=== PATIENT | female | born 1960 | race African-American/Black ===

== ENCOUNTER 2024-08-30 21:53 | Emergency (ER) | payer OTHER, MEDICAID ==
[~2024-08-30] VITALS: Ht 175.3 cm; Wt 127.0 kg
[2024-08-30 21:59] VITALS: O2SAT 99
[2024-08-30 22:59] LABS: BASOPHILS % 0.5 % (0.0-2.0); EOSINOPHILS % 0.7 % (0.0-5.0); HEMATOCRIT. 33.8 % (36.0-48.0); HEMOGLOBIN. 11.4 g/dL (12.0-16.0); LYMPHOCYTES % 20.1 % (20.0-50.0); MEAN CORPUSCULAR HEMOGLOBIN 30.3 pg (28.0-32.0); MEAN CORPUSCULAR HGB CONC 33.7 g/dL (31.0-37.0); MEAN CORPUSCULAR VOLUME 89.9 fL (81.0-99.0); MEAN PLATELET VOLUME 8.9 fl (7.4-10.4); MONOCYTES % 7.2 % (2.0-8.0); NEUTROPHILS % 71.5 % (40.0-76.0); PLATELET 180 x1000/uL (130-400); RED BLOOD CELL COUNT 3.76 mill/uL (4.2-5.4); RED CELL DISTRIBUTION WIDTH 13.7 % (11.6-14.6); WHITE BLOOD COUNT 5.4 x1000/uL (4.5-11.0)
[2024-08-30 23:10] LABS: PARTIAL THROMBOPLASTIN TIME 23.7 sec (23.4-31.0); PROTHROMBIN TIME 10.9 sec (9.6-11.0)
[2024-08-30 23:16] LABS: CHLORIDE 105 mEq/L (98-107); SODIUM 138 mEq/L (136-145)
[2024-08-30 23:17] LABS: CALCIUM 8.5 mg/dL (8.7-10.4); CARBON DIOXIDE 27 mEq/L (21-32)
[2024-08-30 23:22] LABS: CREATININE 1.5 mg/dL (0.6-1.0); GLUCOSE 126 mg/dL (70-105); UREA NITROGEN BLOOD 24 mg/dL (9-23)
[2024-08-30 23:23] LABS: ETHANOL BLOOD < 10 mg/dL (<10)
[2024-08-30 23:25] LABS: TROPONIN I HIGH SENSITIVITY < 4 ng/L (3.0-34)
[2024-08-31] MEDS: SODIUM CHLORIDE 0.9% 500 ML IV NR (00:29)
[2024-08-31 03:11] LABS: TROPONIN I HIGH SENSITIVITY < 4 ng/L (3.0-34)
[2024-08-31] MEDS: SODIUM CHLORIDE 0.9% 500 ML IV ONE (04:18)
[2024-08-31 05:43] VITALS: BP 114/76; PULSE 74; RESP 19; TEMP 36.6; O2SAT 98
== END 2024-08-31 06:08 | disposition home or self-care (01) ==
LOC: ER 21:53
DX: R55 Syncope and collapse (principal); F12.929 Cannabis use, unspecified with intoxication, unspecified; I10 Essential (primary) hypertension; Z86.73 Personal history of transient ischemic attack (TIA), and cerebral infarction without residual deficits
CPT/HCPCS: 80048; 80320; 83880; 85025; 85610; 85730; 84484 ×2; 36415 ×2; 71045; 70450; 93005; 99285; J7040; A4606; G0480